=== PATIENT | male | born 1990 | race Caucasian/White ===

== ENCOUNTER 2019-10-18 03:06 | Emergency (ER) | payer SELFPAY ==
[~2019-10-18] VITALS: Ht 188 cm; Wt 90.7 kg
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
[2019-10-18 03:58] VITALS: BP 161/82
--- NOTE | 2019-10-18 04:00 | NUR ---
HAND-OFF: Report given to JOSY priest.
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
--- NOTE | 2019-10-18 04:30 | NUR ---
ED Nurse Note: Patient returned from CT.
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
[2019-10-18] MEDS ORDERED: IBUPROFEN600 MG ORAL (05:32)
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
--- NOTE | 2019-10-18 05:38 | NUR ---
ED Nurse Note: Patient lceard for dischrge by DANIEL. Pateint verbalized understanding of discharge instructions. Patient's ID band removed. Patient is A&Ox4, ambulatory with steady gait, departed with all belongings accompanied by his girlfriend to home via personal vehicle.
[2019-10-18 05:40] VITALS: BP 161/82
--- NOTE | 2019-10-18 06:10 | NUR ---
ED Nurse Note: Patient departed from room after requesting medication prior to departure. ERMd notified and request accomodated. PAtient departed from building.
== END 2019-10-18 06:13 | disposition home or self-care (01) ==
LOC: EMR 03:49
DX: S06.9X9A Unspecified intracranial injury with loss of consciousness of unspecified duration, initial encounter (principal); Y04.2XXA Assault by strike against or bumped into by another person, initial encounter; Y93.9 Activity, unspecified; Y92.9 Unspecified place or not applicable; I10 Essential (primary) hypertension; Z91.040 Latex allergy status
CPT/HCPCS: 70450; 99284